=== PATIENT | male | born 1980 | race African-American/Black ===

== ENCOUNTER 2016-09-25 09:04 | Emergency (ER) | payer SELFPAY ==
[~2016-09-25] VITALS: Ht 182.9 cm; Wt 100.0 kg
[2016-09-25 09:07] VITALS: BP 130/86; PULSE 74; RESP 20; TEMP 98.7; O2SAT 97
[2016-09-25] MEDS ORDERED: ERYTOIN10 LEFT EYE (09:35)
[2016-09-25] MEDS ORDERED: IBUP800T23 PO (09:35)
--- NOTE | 2016-09-25 09:36 | PD ---
HPI Chief Complaint: Eye Problems/Injury Time Seen by Provider: 09:29 Travel History International Travel<30 days: No Contact w/Intl Traveler<30days: No Traveled to known affect area: No History of Present Illness HPI 36-year-old male presents emergency Department with complaint of left eye pain that started last night. Unknown foreign body. Denies trauma to the eye. 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 Reports clear drainage. Denies change in vision. Reports photophobia. Denies fever, vomiting. Wear sunglasses to decrease sunlight. Has not taken any medications or tried any other treatments to alleviate symptoms. Has no other medical complaints. No known allergies. No other modifying factors or associated signs and symptoms. PFSH Social History Tobacco Use: No Allergies-Medications (Allergen,Severity, Reaction): Coded Allergies: No Known Allergies (Unverified , 09/25/16) Reported Meds & Prescriptions Reported Meds & Active Scripts Active Ibuprofen 800 Mg Tab 800 Mg PO Q6HR PRN Erythromycin Opth Oint 5 Mg/Gm Oint 1 Applic LEFT EYE QID 7 Days Review of Systems Except as stated in HPI: all other systems reviewed are Neg Physical Exam Narrative GENERAL: Well-nourished, well-developed male patient, in no acute distress SKIN: Warm and dry. HEAD: Atraumatic. Normocephalic. EYES: Pupils equal and round at 3 mm with brisk reaction. PERRLA. EOMI. Left lid eversion with no foreign body noted. Penetrated foreign body noted at approximately the 12 o'clock position over the iris. Left eye with scleral erythema and mild lid edema. No orbital tenderness, erythema or cellulitis. Left eye with photophobia. No consensual photophobia. No scleral icterus. Clear drainage. Aguirre lamp exam reveals a penetrated foreign body at the 12:00 position over the iris. ENT: Mucosa pink and moist. Airway patent. NECK: Trachea midline. CARDIOVASCULAR: Regular rate. RESPIRATORY: No accessory muscle use. GASTROINTESTINAL: Rounded. NEUROLOGICAL: Awake and alert. Oriented 3. No obvious cranial nerve deficits. Motor grossly within normal limits. Normal speech. PSYCHIATRIC: Appropriate mood and affect; insight and judgment normal. Data Data Last Documented VS Vital Signs Date Time Temp Pulse Resp B/P Pulse Ox O2 Delivery O2 Flow Rate FiO2 09/25/16 09:07 98.7 74 20 130/86 97 Room Air Orders Mandatory Outpatient Referral (09/25/16 09:41) MDM Medical Decision Making Medical Screen Exam Complete: Yes Emergency Medical Condition: Yes Medical Record Reviewed: Yes Differential Diagnosis Conjunctivitis, foreign body, corneal abrasion Narrative Course 36-year-old male with penetrated foreign body in the left eye. I attempted to remove the foreign body with no success; see my procedure note. Callout crabber. [id number]: I spoke with Dr. Mercedes Pereira, crabber, and she recommended the patient to follow-up in her office after discharge from the hospital. Patient instructed to follow-up with Dr. Pereira immediately. Address and contact information provided. Mandatory outpatient referral ordered. Patient verbalizes understanding and agreement with treatment plan. Patient is medically cleared and stable for discharge. Discussed reasons to return to the emergency department. Instructed patient to follow up with primary care provider. Patient agrees with treatment plan. The patients vital signs are stable and the patient is stable for outpatient follow-up and treatment. Patient discharged home, stable and in no acute distress. Procedures Procedure Narrative Removal of foreign body from eye: The eye was properly anesthetized with proparacaine drops. The rounded bevel of the needle was used to attempt removal of the foreign body without success. Patient tolerated well. Diagnosis Primary Impression: Foreign body in cornea, left eye, initial encounter Referrals: Carina Pereira MD Primary Care Physician Patient Instructions: Eye Foreign Body (ED), General Instructions Departure Forms: Tests/Procedures, Work Release Enter return to work date: Sep 29, 2016 Additional Instructions: Ibuprofen or Tylenol as directed and as needed to reduce pain Do not rub the eye Refrigerated eye drops as needed to reduce pain Cool compresses to the eye as needed to reduce pain Follow-up with ophthalmology today Flollowup with Primary care provider Return to the emergency department immediately with worsening of symptoms Med/Other Pt SpecificInfo: Prescription(s) given Scripts Ibuprofen 800 Mg [id number] Mg PO Q6HR PRN (PAIN) #30 TAB Ref 0 Prov:Aliyah Cortez [employer] 09/25/16 Erythromycin Opth Oint 5 Mg/Gm Oint1 Applic LEFT EYE QID 7 Days Ref 0 Prov:Aliyah Cortez [employer] 09/25/16 Disposition: 01 DISCHARGE HOME Condition: Stable Aliyah Cortez Sep 25, 2016 09:36
[2016-09-25] MEDS ORDERED: PROPARACAINE HCL 0.5% OPHT SOLN 15 ML BTL LEFT EYE ONE (10:45)
== END 2016-09-25 10:15 | disposition home or self-care (01) ==
LOC: NEPK 09:04
DX: T15.02XA Foreign body in cornea, left eye, initial encounter (principal); X58.XXXA Exposure to other specified factors, initial encounter
CPT/HCPCS: 65220